=== PATIENT | male | born 1985 | race African-American/Black ===

== ENCOUNTER 2020-10-14 18:13 | Inpatient (IN) | payer OTHER ==
[2020-10-14 18:40] VITALS: BMI 26.4
[2020-10-14] MEDS ORDERED: MENTHOL/PHENOL 1 EACH UD MM PRN (19:20)
[2020-10-14] MEDS ORDERED: MAG HYDROX/AL HYDROX/SIMETH 30 ML UNIT-DOSE CUP PO PRN (19:20)
[2020-10-14] MEDS ORDERED: BISMUTH SUBSALICYLATE 524 MG/30 ML PO PRN (19:20)
[2020-10-14] MEDS ORDERED: IBUPROFEN 400 MG TABLET (FP) PO PRN (19:20)
[2020-10-14] MEDS ORDERED: MAGNESIUM CITRATE 300 ML BOTTLE PO PRN (19:20)
[2020-10-14] MEDS ORDERED: ACETAMINOPHEN 325 MG TABLET (FP) PO PRN ×2 (19:20)
[2020-10-14] MEDS ORDERED: MAGNESIUM HYDROX 2400MG/30ML ORAL SUSPENSION 30 ML CUP PO PRN (19:20)
[2020-10-14] MEDS ORDERED: METHOCARBAMOL 500 MG TABLET PO PRN (19:20)
[2020-10-14] MEDS ORDERED: ONDANSETRON *ODT* 4 MG TABLET SL PRN (19:20)
[2020-10-14] MEDS ORDERED: THIAMINE HCL 100 MG TABLET (FP) PO SCH (22:00)
[2020-10-14] MEDS ORDERED: MELATONIN 5 MG TABLETS PO SCH (22:00)
[2020-10-14] MEDS: hydrOXYzine PAMOATE 25 MG CAPSULE (FP) PO SCH (22:26)
[2020-10-15] MEDS ORDERED: ALBUTEROL SO4 HFA INHALER IH ONE (05:49)
[2020-10-15] MEDS ORDERED: ALBUTEROL SO4 HFA INHALER IH PRN (05:50)
[2020-10-15] MEDS: hydrOXYzine PAMOATE 25 MG CAPSULE (FP) PO SCH ×2 (07:15→10:14)
[2020-10-15 09:23] VITALS: BP 139/87; PULSE 60; TEMP 98.2
[2020-10-15 09:52] LABS: ALBUMIN 3.7 g/dl (3.4-5.0); BLOOD UREA NITROGEN 17.4 mg/dL (7-18); HEMATOCRIT 45.7 % (35.4-49); HEMOGLOBIN 15.2 GM/dL (11.7-16.9); MCH 30.1 pg (25.7-33.7); MCHC 33.2 g/dl (32.0-35.9); MEAN CELL VOLUME 90.8 fl (80-96); MEAN PLT VOLUME 7.5 fl (7.5-11.1); PLATELET COUNT 292 K/MM3 (134-434); RBC 5.04 M/mm3 (4.00-5.60); RDW 14.2 % (11.9-15.9); WHITE BLOOD COUNT 7.6 K/mm3 (4.0-10.0)
[2020-10-15 09:56] LABS: CREATININE 1.1 mg/dL (0.55-1.3)
[2020-10-15 09:57] LABS: BILIRUBIN,TOTAL 0.6 mg/dL (0.2-1); TOT PROT 6.6 g/dl (6.4-8.2)
[2020-10-15] MEDS ORDERED: PRENATAL VITAMINS W/ FOLIC ACID TABLET (FP) PO SCH (10:00)
[2020-10-15] MEDS ORDERED: MASKS NR ONE (11:04)
== END 2020-10-15 12:26 | disposition home or self-care (01) | DRG 775 ==
LOC: YASAS 18:13 → Y3N 19:01 → UNDOADMIN 19:01 → UNDODISIN 10-15 12:26
PROVIDERS: ADMIT Allergy & Immunology; ATTEND Allergy & Immunology
PROC: HZ2ZZZZ Detoxification Services for Substance Abuse Treatment (ICD-10-PCS; principal; 2020-10-14)
DX: F10.230 Alcohol dependence with withdrawal, uncomplicated (principal); F12.10 Cannabis abuse, uncomplicated; F25.1 Schizoaffective disorder, depressive type; F10.282 Alcohol dependence with alcohol-induced sleep disorder; J45.909 Unspecified asthma, uncomplicated; M54.5 Low back pain; G89.29 Other chronic pain; Z91.410 Personal history of adult physical and sexual abuse; Z56.0 Unemployment, unspecified; Z59.0 Homelessness; Z88.8 Allergy status to other drugs, medicaments and biological substances; Z91.012 Allergy to eggs
CPT/HCPCS: 36415; 80053; 85027; 86780; C9803; U0003; U0005

== ENCOUNTER 2021-11-30 11:56 | Inpatient (IN) | payer OTHER ==
[2021-11-30 12:18] VITALS: BMI 27.8
[2021-11-30] MEDS ORDERED: BENZOCAINE/MENTHOL (CHLORASEPTIC ) LOZENGE MM PRN (14:36)
[2021-11-30] MEDS ORDERED: chlordiazePOXIDE HCL 25 MG CAPSULE PO PRN (14:36)
[2021-11-30] MEDS ORDERED: ACETAMINOPHEN 325 MG TABLET (FP) PO PRN ×2 (14:36)
[2021-11-30] MEDS ORDERED: IBUPROFEN 400 MG TABLET (FP) PO PRN (14:36)
[2021-11-30] MEDS ORDERED: DICYCLOMINE HCL 10 MG CAPSULE PO PRN (14:36)
[2021-11-30] MEDS ORDERED: MAGNESIUM CITRATE 300 ML BOTTLE PO PRN (14:36)
[2021-11-30] MEDS ORDERED: NICOTINE 10 MG CARTRIDGE (INHALER) IH PRN (14:36)
[2021-11-30] MEDS ORDERED: ONDANSETRON *ODT* 4 MG TABLET SL PRN (14:36)
[2021-11-30] MEDS ORDERED: LOPERAMIDE HCL 2 MG CAPSULE PO PRN (14:36)
[2021-11-30] MEDS ORDERED: MAGNESIUM HYDROX 2400MG/30ML ORAL SUSPENSION 30 ML CUP PO PRN (14:36)
[2021-11-30] MEDS ORDERED: MAG HYDROX/AL HYDROX/SIMETH 30 ML UNIT-DOSE CUP PO PRN (14:36)
[2021-11-30] MEDS ORDERED: BISMUTH SUBSALICYLATE 262 MG/15 ML BTL PO PRN (14:36)
[2021-11-30] MEDS ORDERED: IBUPROFEN 600 MG TABLET (FP) PO PRN (14:36)
[2021-11-30] MEDS: METHOCARBAMOL 500 MG TABLET PO PRN (18:44)
[2021-11-30] MEDS: hydrOXYzine PAMOATE 25 MG CAPSULE (FP) PO SCH ×2 (18:44→23:14)
[2021-11-30] MEDS: chlordiazePOXIDE HCL 25 MG CAPSULE PO SCH ×2 (18:44→23:14)
[2021-11-30] MEDS: MELATONIN 5 MG TABLETS PO SCH (23:14)
[2021-11-30] MEDS: THIAMINE HCL 100 MG TABLET (FP) PO SCH (23:15)
[2021-12-01] MEDS: chlordiazePOXIDE HCL 25 MG CAPSULE PO SCH ×4 (06:32→23:26)
[2021-12-01] MEDS: hydrOXYzine PAMOATE 25 MG CAPSULE (FP) PO SCH ×5 (06:32→23:26)
[2021-12-01] MEDS: PRENATAL VITAMINS W/ FOLIC ACID TABLET (FP) PO SCH (10:44)
[2021-12-01] MEDS: METHOCARBAMOL 500 MG TABLET PO PRN (10:44)
[2021-12-01] MEDS: THIAMINE HCL 100 MG TABLET (FP) PO SCH (23:26)
[2021-12-01] MEDS: MELATONIN 5 MG TABLETS PO SCH (23:26)
[2021-12-02] MEDS: hydrOXYzine PAMOATE 25 MG CAPSULE (FP) PO SCH ×2 (06:09→12:03)
[2021-12-02] MEDS: chlordiazePOXIDE HCL 25 MG CAPSULE PO SCH ×2 (06:09→12:03)
[2021-12-02] MEDS: PRENATAL VITAMINS W/ FOLIC ACID TABLET (FP) PO SCH (12:02)
[2021-12-02 13:32] VITALS: RESP 18
[2021-12-02 16:59] VITALS: BP 149/89; PULSE 94; TEMP 98.2
[2021-12-03] MEDS ORDERED: chlordiazePOXIDE HCL 10 MG CAPSULE PO PRN
[2021-12-03] MEDS ORDERED: chlordiazePOXIDE HCL 10 MG CAPSULE PO SCH (05:00)
[2021-12-04] MEDS ORDERED: chlordiazePOXIDE HCL 10 MG CAPSULE PO SCH (05:00)
[2021-12-05] MEDS ORDERED: chlordiazePOXIDE HCL 10 MG CAPSULE PO ONE (05:00)
== END 2021-12-02 20:37 | disposition left against medical advice (07) | DRG 770 ==
LOC: YASAS 11:56 → Y3N 15:17 → Y6N 15:40
PROVIDERS: ADMIT Allergy & Immunology; ATTEND Surgery
PROC: HZ2ZZZZ Detoxification Services for Substance Abuse Treatment (ICD-10-PCS; principal; 2021-11-30)
DX: F10.230 Alcohol dependence with withdrawal, uncomplicated (principal); F10.282 Alcohol dependence with alcohol-induced sleep disorder; F25.9 Schizoaffective disorder, unspecified; F19.24 Other psychoactive substance dependence with psychoactive substance-induced mood disorder; F19.282 Other psychoactive substance dependence with psychoactive substance-induced sleep disorder; M54.59 Other low back pain; G89.29 Other chronic pain; J45.909 Unspecified asthma, uncomplicated; Z28.310 Unvaccinated for COVID-19; Z88.8 Allergy status to other drugs, medicaments and biological substances; Z91.012 Allergy to eggs; Z56.0 Unemployment, unspecified; Z59.00 Homelessness unspecified
CPT/HCPCS: 93005; 93010; C9803-CS; U0003; U0005

== ENCOUNTER 2023-03-23 04:24 | Emergency (ER) | payer OTHER ==
[2023-03-23] MEDS ORDERED: SODIUM CHLORIDE 1,000 ML IV STA (04:40)
[2023-03-23] MEDS ORDERED: MAGNESIUM SULF 50% (8.12 MEQ/2 ML-1 GM VIAL) IVPB ONE (04:40)
[2023-03-23 05:02] VITALS: BP 118/79; PULSE 100; RESP 18; TEMP 97.6; BMI 27.8
[2023-03-23] MEDS ORDERED: MAGNESIUM SULFATE IN WATER 2 GM/50 ML IVPB IVPB ONE (05:19)
== END 2023-03-23 06:48 | disposition home or self-care (01) ==
LOC: JER 04:24
PROC: 3E033GC Introduction of Other Therapeutic Substance into Peripheral Vein, Percutaneous Approach (ICD-10-PCS; principal; 2023-03-23)
PROC: 3E0337Z Introduction of Electrolytic and Water Balance Substance into Peripheral Vein, Percutaneous Approach (ICD-10-PCS; 2023-03-23)
DX: J45.901 Unspecified asthma with (acute) exacerbation (principal); R06.02 Shortness of breath; R00.0 Tachycardia, unspecified; Z20.822 Contact with and (suspected) exposure to COVID-19
CPT/HCPCS: 0241U-QW; 99284-25

== ENCOUNTER 2023-10-06 22:02 | Inpatient (IN) | payer OTHER ==
[2023-10-06] MEDS ORDERED: METHOCARBAMOL 500 MG TABLET PO PRN (22:36)
[2023-10-06] MEDS ORDERED: MAGNESIUM HYDROX 2400MG/30ML ORAL SUSPENSION 30 ML CUP PO PRN (22:36)
[2023-10-06] MEDS ORDERED: ONDANSETRON *ODT* 4 MG TABLET SL PRN (22:36)
[2023-10-06] MEDS ORDERED: guaiFENesin 600 MG TABLET.ER (FP) PO PRN (22:36)
[2023-10-06] MEDS ORDERED: BENZONATATE 200 MG CAPSULE PO PRN (22:36)
[2023-10-06] MEDS ORDERED: ACETAMINOPHEN 325 MG TABLET (FP) PO PRN (22:36)
[2023-10-06] MEDS ORDERED: IBUPROFEN 600 MG TABLET (FP) PO PRN (22:36)
[2023-10-06] MEDS ORDERED: BISMUTH SUBSALICYLATE 524 MG/30 ML PO PRN (22:36)
[2023-10-06] MEDS ORDERED: DICYCLOMINE HCL 10 MG CAPSULE PO PRN (22:36)
[2023-10-06] MEDS ORDERED: IBUPROFEN 400 MG TABLET (FP) PO PRN (22:36)
[2023-10-06] MEDS ORDERED: NALOXONE HCL 0.4 MG/ML VIAL IM PRN (22:36)
[2023-10-06] MEDS ORDERED: POLYETHYLENE GLYCOL (HEALTHYLAX) 3350 17 GM PACKET PO PRN (22:36)
[2023-10-06] MEDS ORDERED: BENZOCAINE/MENTHOL (CHLORASEPTIC ) LOZENGE MM PRN (22:36)
[2023-10-06] MEDS ORDERED: LOPERAMIDE HCL 2 MG CAPSULE PO PRN (22:36)
[2023-10-06] MEDS ORDERED: NALOXONE HCL (KLOXXADO) 8 MG SPRAY NS PRN (22:36)
[2023-10-06] MEDS ORDERED: MAG HYDROX/AL HYDROX/SIMETH 30 ML UNIT-DOSE CUP PO PRN (22:36)
[2023-10-06] MEDS ORDERED: ALBUTEROL SO4 HFA INHALER IH PRN (22:39)
[2023-10-06 22:47] VITALS: BMI 30.7
[2023-10-06] MEDS: hydrOXYzine PAMOATE 25 MG CAPSULE (FP) PO PRN (23:30)
[2023-10-07] MEDS: ALBUTEROL SO4 HFA INHALER IH SCH (06:32)
[2023-10-07] MEDS: PRENATAL VITAMINS W/ FOLIC ACID TABLET (FP) PO SCH (10:09)
[2023-10-07 11:50] LABS: HEMATOCRIT 44.4 % (35.4-49); HEMOGLOBIN 15.2 GM/dL (11.7-16.9); MCH 30.5 pg (25.7-33.7); MCHC 34.3 g/dl (32.0-35.9); MEAN CELL VOLUME 88.9 fl (80-96); MEAN PLT VOLUME 7.3 fl (7.5-11.1); PLATELET COUNT 290 10^3/uL (134-434); RBC 4.99 M/mm3 (4.00-5.60); RDW 14.8 % (11.9-15.9); WHITE BLOOD COUNT 7.6 K/mm3 (4.0-10.0)
[2023-10-07 11:54] LABS: CHLORIDE 105 mmol/L (98-107); POTASSIUM 3.8 mmol/L (3.5-5.1); SODIUM 137 mmol/L (136-145)
[2023-10-07 12:02] LABS: CALCIUM 9.1 mg/dL (8.5-10.1)
[2023-10-07 12:03] LABS: ALBUMIN 3.7 g/dl (3.4-5.0); ANION GAP 3 mmol/L (4-13); BLOOD UREA NITROGEN 11.9 mg/dL (7-18); CO2 30 mmol/L (21-32); GLUCOSE,RANDOM 83 mg/dL (74-106)
[2023-10-07 12:05] LABS: SGOT/AST 27 U/L (15-37); SGPT/ALT 35 U/L (13-61)
[2023-10-07 12:06] LABS: BILIRUBIN,TOTAL 0.3 mg/dL (0.2-1); CREATININE 1.1 mg/dL (0.55-1.3)
[2023-10-07 12:07] LABS: TOT PROT 6.9 g/dl (6.4-8.2)
[2023-10-07 12:08] LABS: ALK PHOS 72 U/L (45-117)
[2023-10-07 16:50] VITALS: BP 124/71; PULSE 58; RESP 16; TEMP 98.7
[2023-10-07] MEDS ORDERED: MELATONIN 5 MG TABLETS PO SCH (22:00)
[2023-10-07] MEDS ORDERED: THIAMINE 100 MG TABLET PO SCH (22:00)
== END 2023-10-07 18:40 | disposition home or self-care (01) | DRG 774 ==
LOC: YASAS 22:02 → Y6N 23:08
PROVIDERS: ADMIT Allergy & Immunology; ATTEND Surgery
PROC: HZ2ZZZZ Detoxification Services for Substance Abuse Treatment (ICD-10-PCS; principal; 2023-10-06)
DX: F10.20 Alcohol dependence, uncomplicated (principal); F13.20 Sedative, hypnotic or anxiolytic dependence, uncomplicated; F14.10 Cocaine abuse, uncomplicated; F41.9 Anxiety disorder, unspecified; J45.20 Mild intermittent asthma, uncomplicated; M54.50 Low back pain, unspecified; G89.29 Other chronic pain
CPT/HCPCS: 36415; 80053; 80305; 80307; 85027